=== PATIENT | female | born 1970 | race Caucasian/White ===

== ENCOUNTER 2017-12-03 20:20 | Emergency (ER) | payer OTHER ==
[~2017-12-03] VITALS: Ht 152.4 cm; Wt 78.5 kg
[2017-12-03 20:35] VITALS: Ht 152.4 cm; Wt 78.5 kg
[2017-12-03 21:08] LABS: BASOPHIL % 0.4 % (0-2); PLATELET COUNT 314 x10^3mcL (130-400); RED CELL DISTRIBUTION WIDTH 14.4 % (11.5-14.5)
[2017-12-03 21:17] LABS: CALCIUM 8.4 mg/dL (8.5-10.1); CARBON DIOXIDE 23.4 mmol/L (21-32); CHLORIDE SERUM 106 mmol/L (98-107); CREATININE SERUM 0.7 mg/dL (0.6-1.0); GFR1 > 60 mL/min; GLUCOSE SERUM 126 mg/dL (74-106); POTASSIUM SERUM 3.3 mmol/L (3.5-5.1); SODIUM SERUM 141 mmol/L (136-145)
[2017-12-03 21:22] LABS: ALBUMIN 3.5 g/dL (3.4-5.0); ALKALINE PHOSPHATASE 81 U/L (46-116); ALT/SGPT 16 U/L (14-59); AST/SGOT 17 U/L (15-37); TOTAL PROTEIN, SERUM 7.3 g/dL (6.4-8.2)
[2017-12-03 21:42] VITALS: BP 124/79
== END 2017-12-03 21:42 | disposition home or self-care (01) ==
LOC: ED 20:20
PROVIDERS: Emergency Medicine
DX: K52.9 Noninfective gastroenteritis and colitis, unspecified (principal); R55 Syncope and collapse
CPT/HCPCS: 36415; Q0162

== ENCOUNTER 2019-09-04 18:09 | Emergency (ER) | payer OTHER ==
[~2019-09-04] VITALS: Ht 162.6 cm; Wt 72.6 kg
[2019-09-04 18:16] VITALS: Ht 162.6 cm; Wt 72.6 kg
[2019-09-04 21:10] VITALS: BP 119/37
== END 2019-09-04 21:10 | disposition home or self-care (01) ==
LOC: ED 18:09
DX: J20.8 Acute bronchitis due to other specified organisms (principal)
CPT/HCPCS: 87804

== ENCOUNTER 2020-04-25 09:57 | Emergency (ER) | payer OTHER ==
[~2020-04-25] VITALS: Ht 154.9 cm; Wt 74.8 kg
[2020-04-25 10:01] VITALS: Ht 154.9 cm; Wt 74.8 kg
[2020-04-25 11:56] LABS: BASOPHIL % 0.2 % (0-2); PLATELET COUNT 313 x10^3mcL (130-400)
[2020-04-25 11:59] LABS: RED CELL DISTRIBUTION WIDTH 20.6 % (11.5-14.5)
[2020-04-25 12:08] LABS: CALCIUM 8.6 mg/dL (8.5-10.1); CARBON DIOXIDE 25.4 mmol/L (21-32); CHLORIDE SERUM 102 mmol/L (98-107); CREATININE SERUM 0.7 mg/dL (0.6-1.0); GFR1 > 60 mL/min; GLUCOSE SERUM 117 mg/dL (74-106); POTASSIUM SERUM 3.3 mmol/L (3.5-5.1); SODIUM SERUM 135 mmol/L (136-145)
[2020-04-25 12:13] LABS: ALBUMIN 3.6 g/dL (3.4-5.0); ALKALINE PHOSPHATASE 86 U/L (46-116); ALT/SGPT 15 U/L (14-59); AST/SGOT 16 U/L (15-37); BILIRUBIN TOTAL 0.7 mg/dL (0.20-1.00); LIPASE 135 IU/L (73-393); TOTAL PROTEIN, SERUM 7.3 g/dL (6.4-8.2)
[2020-04-25 12:55] LABS: ovalocyte/elliptocyte 1+; rbc morphology (normal/abnorm) ABNORMAL (NORMAL); tear drop cell (dacryocyte) 1+
[2020-04-25 14:41] VITALS: BP 115/854
== END 2020-04-25 14:41 | disposition home or self-care (01) ==
LOC: ED 09:57
PROVIDERS: Student in an Organized Health Care Education/Training Program
DX: K56.41 Fecal impaction (principal)
CPT/HCPCS: J1885; J2765; J3010